=== PATIENT | female | born 1960 | race Asian ===

== ENCOUNTER 2025-03-13 11:02 | Emergency (ER) | payer OTHER ==
[2025-03-13] MEDS ORDERED: Bacitracin 1 PK ONE (11:53)
[2025-03-13] MEDS ORDERED: Lidocaine 1% (PF) 30 ML VIAL ONE (11:53)
== END 2025-03-13 11:57 | disposition home or self-care (01) ==
LOC: MADERS 11:02
DX: L60.0 Ingrowing nail (principal)
CPT/HCPCS: 64400; J0665